=== PATIENT | female | born 1980 | race Caucasian/White ===

== ENCOUNTER 2024-08-09 05:41 | Day surgery (SDC) | payer MEDICAID ==
[~2024-08-09] VITALS: Ht 160 cm; Wt 104.5 kg
[~2024-08-09 05:41] MED LIST: LR 1,000 ML IV SCH; Ondansetron 4 MG/2 ML VIAL IV PRN
[2024-08-09 06:16] VITALS: BP 156/95; PULSE 90; TEMP 97
--- NOTE | 2024-08-09 06:20 | NUR ---
Pt arrived for procedure, bowels WNL; VSS and RR even and unlabored; consent reviewed and signed, no questions/concerns; reviewed meds/pharm/allergies/history and updated; to place IV and await procedure.
[2024-08-09] MEDS ORDERED: CARAFATE 1GM1 G PO (06:23)
[2024-08-09] MEDS ORDERED: DESYREL DIVIDO300 MG PO (06:23)
[2024-08-09] MEDS ORDERED: PRINIVIL10 MG PO (06:24)
[2024-08-09] MEDS ORDERED: FLEXERIL5 MG PO (06:24)
[2024-08-09] MEDS ORDERED: ZOFRAN ODT4 MG PO (06:25)
[2024-08-09] MEDS ORDERED: XANAX .25M0.25 MG/TA PO (06:25)
[2024-08-09] MEDS ORDERED: EUTHYROX175 MCG PO (06:25)
[2024-08-09] MEDS ORDERED: PERCOCET 325 MG1 TA3 PO (06:26)
[2024-08-09 08:23] VITALS: BP 155/83; PULSE 83
[2024-08-09 08:30] VITALS: BP 145/105; PULSE 87
--- NOTE | 2024-08-09 08:30 | NUR ---
Pts BP elevated, pt had just returned from using bathroom. Will recheck. Pt also states she has not taken her BP medication this morning yet.
[2024-08-09 09:00] VITALS: BP 155/96; PULSE 80
--- NOTE | 2024-08-09 09:00 | NUR ---
Pts VSS-see flowsheet. Tolerated oral intake. Dr Mccullough was in to visit with pt and pts mom post procedures. IV removed, pressure dressing applied. Pt dressed and discharge teaching completed, verbalized understanding. Pt taken via wheelchair to private vehicle for dc home with mom driving.
[2024-08-09 16:38] VITALS: BP 138/96; PULSE 87
== END 2024-08-09 09:00 | disposition home or self-care (01) ==
LOC: SDCO 05:41
DX: K62.1 Rectal polyp (principal); K29.70 Gastritis, unspecified, without bleeding; K52.9 Noninfective gastroenteritis and colitis, unspecified; K62.5 Hemorrhage of anus and rectum; B96.81 Helicobacter pylori [H. pylori] as the cause of diseases classified elsewhere; Z87.891 Personal history of nicotine dependence; Z86.19 Personal history of other infectious and parasitic diseases
CPT/HCPCS: J2704; J7120